=== PATIENT | female | born 1980 | race Caucasian/White ===

== ENCOUNTER 2019-06-09 08:06 | Outpatient (CLI) | payer OTHER ==
[2019-06-09 08:50] LABS: #Basophils 0.1 thou/uL (0.0-0.2); #Eosinphils 0.2 thou/uL (0.0-0.7); #Lymphocytes 1.8 thou/uL (1.20-3.40); #Monocytes 0.5 thou/uL (0.11-0.59); #Neutrophils 3.7 thou/uL (1.40-6.50); %Eosinophils 3.4 % (0.0-10.0); %Lymphocytes 29.1 % (21.0-51.0); %Monocytes 7.4 % (0.0-10.0); %Neutrophils 59.1 % (42.0-75.0); Hemoglobin 15.3 g/dL (12.0-16.0); Mean Corpuscular HGB CONC 34.4 g/dL (32.0-36.0); Mean Corpuscular Hemoglobin 32.1 pg (27.0-31.0); Mean Corpuscular Volume 93.3 fL (78.0-98.0); Mean Platelet Volume 7.6 fL (7.4-10.4); Platelet Count 237 thou/uL (130-400); RBC Distribution Width 11.1 % (11.5-14.5); Red Blood Cell (RBC) Count 4.77 mill/uL (4.20-5.40); White Blood Cell (WBC) Count 6.3 thou/uL (4.8-10.8)
[2019-06-09] MEDS ORDERED: Iopamidol 370 76% 100 ML VIAL ONE (09:00)
--- NOTE | 2019-06-09 09:00 | CT ---
CT OF THE ABDOMEN WITH AND WITHOUT IV CONTRAST INDICATION: Epigastric abdominal pain with weight loss. History of cholecystectomy and appendectomy. History of endometriosis. COMPARISON: None FINDINGS: ABDOMEN: Lung bases: Clear Liver: No focal lesion. Gallbladder: Surgically absent Pancreas: Normal. Adrenal glands: Normal. Spleen: Normal. Kidneys and ureters: There is a 5 mm oval hypodensity seen within the left mid kidney most consistent with a tiny renal cyst. No focal right renal lesion is identified. No hydronephrosis is seen. Vasculature: Normal. Bowel: No suspicious abnormality is seen involving the visualized colon or small bowel. There is post surgical change of a right lower quadrant appendectomy. Lymph nodes:No lymphadenopathy. Free fluid in abdomen:No free fluid is evident. Osseous structures: No acute osseous abnormality. No destructive osteolytic or osteoblastic lesion i s identified. Soft tissues:There is a small fat-containing umbilicus hernia. IMPRESSION: 1. No acute abnormality. 2. Small left renal cyst. 3. Cholecystectomy and appendectomy. 4. Small fat-containing umbilicus hernia
[2019-06-09 09:01] LABS: ALT (SGPT) 18 U/L (8-55); AST (SGOT) 16 U/L (5-34); Albumin 4.6 g/dL (3.5-5.0); Alkaline Phosphatase 38 U/L (40-110); Anion Gap 15 mmol/L (10-20); BUN (Urea Nitrogen) 8 mg/dL (7.0-18.7); Bilirubin, Total 0.9 mg/dL (0.2-1.2); Calc. Creatinine Clearance 0 mL/min (70-130); Calcium 9.3 mg/dL (7.8-10.44); Carbon Dioxide 25 mmol/L (22-29); Chloride 104 mmol/L (98-107); Estimated GFR-MDRD 64; Globulin 2.5 g/dL (2.4-3.5); Glucose 91 mg/dL (70-105); Lipase 33 U/L (8-78); Potassium 3.9 mmol/L (3.5-5.1); Protein, Total 7.1 g/dL (6.0-8.3); Sodium 140 mmol/L (136-145)
== END 2019-06-09 08:07 | disposition home or self-care (01) ==
LOC: SCSCT 08:06
PROVIDERS: ATTEND Internal Medicine Gastroenterology
DX: R63.4 Abnormal weight loss (principal); R10.13 Epigastric pain; N28.1 Cyst of kidney, acquired; K42.9 Umbilical hernia without obstruction or gangrene; Z90.49 Acquired absence of other specified parts of digestive tract
CPT/HCPCS: 74170; 80053; 83690; 85025; Q9967

== ENCOUNTER 2024-04-18 12:45 | Outpatient (CLI) | payer BC | END 2024-04-18 12:46 | disposition home or self-care (01) | LOC: SCSRAD 12:45 | PROVIDERS: ATTEND Internal Medicine Rheumatology | DX: M45.2 Ankylosing spondylitis of cervical region (principal); M47.812 Spondylosis without myelopathy or radiculopathy, cervical region; M50.322 Other cervical disc degeneration at C5-C6 level; M50.323 Other cervical disc degeneration at C6-C7 level | CPT/HCPCS: 72052 ==